=== PATIENT | male | born 1955 | race Caucasian/White ===

== ENCOUNTER 2016-06-14 11:08 | Day surgery (SDC) | payer OTHER ==
[~2016-06-14] VITALS: Ht 170.2 cm; Wt 110.7 kg
[~2016-06-14 11:08] MED LIST: ALBUTEROL SULF8.5 GM IH; ALDACTONE100 MG PO; ALDACTONE25 MG PO; ASPIR-TRIN325 M1 PO; ASPIRIN325 MG PO; AUGMENTIN875 MG PO; Advair HFA 115/21 IH; CEFAZOLIN SODIUM1 GM IV; DELTASONE20 MG PO; DUONEB3 ML IH; FUROSEMIDE40 MG PO; GLIPIZIDE10 MG PO; GLUCOPHAGE1000 MG PO; GLUCOTROL XL10 MG PO; Glucotrol PO; Hydrodiuril,Oretic,E PO; LANTUS 10100 UNITS/ SC; LANTUS 3 M100 UNITS1 SC; LASIX20 MG PO; LASIX40 MG PO; LEVEMIR FL100 UNITS/ SC; LEVEMIR100 UNIT/2 SC; METFORMIN HCL1000 MG PO; NEURONTIN600 MG PO; NEXIUM40 MG PO; NORVASC10 MG PO; PRINIVIL10 MG PO; PROAIR HFA8.5 GM IH; ROCEPHIN1000 MG IV; SPIRIVA1 INHALATI IH; SPIRONOLACTONE100 MG PO; SSD25GM TP; TOPROL XL100 MG PO; TYLENOL REGULA325 MG PO; VENTOLIN HFA18 GM IH; ZESTRIL,PRINIVI40 M1 PO; Zocor PO
[2016-06-14 12:23] LABS: POINT-OF-CARE METER ID UU13113696
== END 2016-06-14 18:25 | disposition home or self-care (01) ==
LOC: CATH 11:08
PROVIDERS: Internal Medicine Cardiovascular Disease
DX: I35.0 Nonrheumatic aortic (valve) stenosis (principal); I71.2 Thoracic aortic aneurysm, without rupture; J44.9 Chronic obstructive pulmonary disease, unspecified; E11.9 Type 2 diabetes mellitus without complications; Z79.82 Long term (current) use of aspirin
CPT/HCPCS: 82948; C1750; C1769; J1644; J1815; J2250; J3010

== ENCOUNTER → 2016-07-17 | Outpatient (CLI) | payer OTHER | END | disposition home or self-care (01) | LOC: RES 07-14 08:00 | DX: J44.9 Chronic obstructive pulmonary disease, unspecified (principal) | CPT/HCPCS: 94060; 94726; 94729 ==

== ENCOUNTER → 2017-07-04 | Outpatient (CLI) | payer MEDICARE | END | disposition home or self-care (01) | LOC: CDC 14:03 | DX: Z01.810 Encounter for preprocedural cardiovascular examination (principal); I44.7 Left bundle-branch block, unspecified; R00.0 Tachycardia, unspecified; R94.31 Abnormal electrocardiogram [ECG] [EKG] | CPT/HCPCS: 93000 ==